=== PATIENT | female | born 1995 | race Caucasian/White ===

== ENCOUNTER 2024-07-20 22:35 | Emergency (ER) | payer MEDICAID ==
[2024-07-20 22:37] VITALS: PULSE 108; RESP 20; O2SAT 99
== END 2024-07-20 23:31 | disposition left against medical advice (07) ==
LOC: ER 22:35
DX: R06.02 Shortness of breath (principal); Z53.21 Procedure and treatment not carried out due to patient leaving prior to being seen by health care provider